=== PATIENT | male | born 1995 | race Caucasian/White ===

== ENCOUNTER 2018-06-21 16:53 | Emergency (ER) | payer OTHER, SELFPAY ==
[2018-06-21 17:19] VITALS: BP 117/72; PULSE 103; RESP 22; TEMP 36.9; O2SAT 99; BMI 32.7
--- NOTE | 2018-06-21 17:20 | DI.RAD.S_ITS ---
PROCEDURE: XR CHEST 2V INDICATIONS: cough x3 weeks TECHNIQUE: 2 views of the chest were acquired. COMPARISON: None. FINDINGS: Surgical changes and devices: None. Lungs and pleura: No pleural effusions or pneumothorax. Lungs are clear. Mediastinum: Left hilar prominence. Bones and chest wall: No suspicious bony abnormalities. Soft tissues appear unremarkable. IMPRESSION: Left hilar prominence is most consistent with overlap of normal vascular structures. If patient's symptoms persist consider a chest CT with contrast to exclude a mass. Dictated by: Russell Awan M.D. on 06/21/2018 at 18:35 Approved by: Russell Awan M.D. on 06/21/2018 at 18:36
[2018-06-21 17:36] VITALS: BP 119/67; PULSE 101; RESP 18; O2SAT 97
--- NOTE | 2018-06-21 17:55 | PC.NURSE ---
Pt speaks ASL. 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 Pt using phone to text type to communicate with staff. Reports he has been coughing for some time now and having an increasingly hard time breathing for the last 3 days. Pt does heavy manual labor for work and has a histoy of asthma and uses inhaler. Lungs has a mild wheeze in the URL otherwise clear with 96-99% sat. Pt wearing mask in department. Has been taking OTC cold and flu medication.
--- NOTE | 2018-06-21 17:57 | ED_ITS ---
HPI - URI/Sore Throat <POLA Pineda - Last Filed: 06/21/18 22:14> General Chief Complaint: Upper Respiratory Symptoms Stated Complaint: CHRONIC COUGH X3 WKS Time Seen by Provider: 06/21/18 17:56 Source: patient Mode of arrival: ambulatory Limitations: language barrier and physical limitation History of Present Illness HPI Narrative: 22-year-old male with no known medical problems here for complaint of having cough over the past 3 weeks. He reports cough was worse over the last 3 days. Patient also states that he has had fever on and off over the last few days. Difficulty with obtaining history this patient is deaf and speaks sign language with no [employer] worker available. Patient was able to type into his phone for me to read when he was trying to tell me. He denies any past history of asthma. 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 Complaint: cough Related Data Previous Rx's Medication Instructions Recorded doxycycline hyclate 100 mg PO BID #13 cap 06/21/18 Allergies Allergy/AdvReac Type Severity Reaction Status Date / Time No Known Drug Allergies Allergy Verified 06/21/18 17:22 Review of Systems <POLA Pineda - Last Filed: 06/21/18 22:14> Constitutional Denies chills, Denies fever(s), Denies lethargy and Denies weakness Eyes Denies change in vision, Denies eye discharge, Denies irritation and Denies loss of vision ENT Ears, Nose, Mouth, and Throat: Denies change in voice, Denies neck pain, Denies sore throat and Denies throat swelling Cardiovascular Denies chest pain, Denies irregular heart rhythm, Denies lightheadedness, Denies palpitations and Denies orthopnea Respiratory Reports cough and Denies wheezing Gastrointestinal Gastrointestinal: Denies abdominal pain, Denies change in bowel habits, Denies diarrhea, Denies nausea and Denies vomiting Genitourinary Denies hematuria, Denies flank pain, Denies urinary incontinence and Denies urinary urgency Musculoskeletal Denies neck pain Integumentary/Breasts Denies pruritus, Denies erythema, Denies rash and Denies wounds Neurologic Denies confusion, Denies loss of vision and Denies weakness Psychiatric Denies anxiety, Denies confusion, Denies depression, Denies homicidal ideation and Denies suicidal ideation Endocrine Denies palpitations Hematologic/Lymphatic Denies easy bruising Allergic/Immunologic Denies urticaria, Denies throat swelling and Denies wheezing Exam <POLA Pineda - Last Filed: 06/21/18 22:14> Initial Vital Signs Initial Vital Signs: Vital Signs Temperature 98.4 F 06/21/18 17:19 Pulse Rate 103 H 06/21/18 17:19 Respiratory Rate 22 06/21/18 17:19 Blood Pressure 117/72 06/21/18 17:19 Pulse Oximetry 99 06/21/18 17:19 Const General: cooperative and well developed Nutritional Appearance: well nourished Orientation: alert, awake, oriented x3 and not confused [facility] Mouth: oral mucosae normal, oropharynx normal and moist mucous membranes Eyes Conjunctivae: conjunctivae normal Sclera: sclerae normal Pupils: PERRL EOM: EOM intact bilaterally Resp Effort & Inspection: normal respiratory effort, able to speak in complete sentences, no respiratory distress and no use of accessory muscles Auscultation: no rales, no rhonchi and wheezes lower bilaterally Cardio Rate: regular rate Rhythm: regular rhythm Heart Sounds: no click, no gallops, no murmurs and no rubs Skin General: no rashes or lesions noted, No jaundice and No petechiae Neuro General: alert, oriented x3, gait normal and no focal motor deficits <Spring Ascencio DO - Last Filed: 06/22/18 05:38> Initial Vital Signs Initial Vital Signs: Vital Signs Temperature 98.4 F 06/21/18 17:19 Pulse Rate 103 H 06/21/18 17:19 Respiratory Rate 22 06/21/18 17:19 Blood Pressure 117/72 06/21/18 17:19 Pulse Oximetry 99 06/21/18 17:19 Course <POLA Pineda - Last Filed: 06/21/18 22:14> Orders Ordered: Discontinued Medications Albuterol (Ventolin Hfa Prepack) 1 box MISC SEEINSTR ONE Stop: 06/21/18 21:35 Last Admin: 06/21/18 21:40 Dose: 1 box Albuterol/Ipratropium (Duoneb) 3 ml INH NOW ONE Stop: 06/21/18 18:50 Last Admin: 06/21/18 21:33 Dose: Not Given Doxycycline Hyclate (Vibramycin) 100 mg PO NOW ONE Stop: 06/21/18 21:35 Last Admin: 06/21/18 22:07 Dose: 100 mg Sodium Chloride (Normal Saline 0.9%) 1,000 mls @ 1,000 mls/hr IV BOLUS ONE Stop: 06/21/18 21:04 Last Infusion: 06/21/18 22:25 Dose: 0 mls/hr Admin: 06/21/18 20:22 Dose: 1,000 mls/hr Vital Signs - 8 hr 06/21/18 22:21 Temperature 97 F L Pulse Rate 78 Respiratory Rate 17 Blood Pressure 116/69 Pulse Oximetry 99 <Spring Ascencio DO - Last Filed: 06/22/18 05:38> Orders Ordered: Discontinued Medications Albuterol (Ventolin Hfa Prepack) 1 box MISC SEEINSTR ONE Stop: 06/21/18 21:35 Last Admin: 06/21/18 21:40 Dose: 1 box Albuterol/Ipratropium (Duoneb) 3 ml INH NOW ONE Stop: 06/21/18 18:50 Last Admin: 06/21/18 21:33 Dose: Not Given Doxycycline Hyclate (Vibramycin) 100 mg PO NOW ONE Stop: 06/21/18 21:35 Last Admin: 06/21/18 22:07 Dose: 100 mg Sodium Chloride (Normal Saline 0.9%) 1,000 mls @ 1,000 mls/hr IV BOLUS ONE Stop: 06/21/18 21:04 Last Infusion: 06/21/18 22:25 Dose: 0 mls/hr Admin: 06/21/18 20:22 Dose: 1,000 mls/hr Vital Signs - 8 hr 06/21/18 22:21 Temperature 97 F L Pulse Rate 78 Respiratory Rate 17 Blood Pressure 116/69 Pulse Oximetry 99 MDM - URI/Sore Throat <POLA Pineda - Last Filed: 06/21/18 22:14> Lab Data Result diagrams: 06/21/18 20:05 06/21/18 20:05 Lab Results 06/21/18 06/21/18 Range/Units 20:05 20:05 WBC 13.0 H (4.5-11.0) X10^3/uL RBC 4.75 (4.5-5.9) X10^6/uL Hgb 14.0 (13.5-17.5) g/dL Hct 41.0 (41-53) % MCV 86.3 (80-100) fL MCH 29.4 (26-34) PG MCHC 34.0 (30-36) % RDW 13.9 (11.6-14.8) % Plt Count 270 (150-400) X10^3/uL Neut % (Auto) 66.5 (50-75) % Lymph % (Auto) 20.1 L (25-40) % Scurry % (Auto) 8.3 (3-14) % Eos % (Auto) 4.0 (2-4) % Baso % (Auto) 1.1 (0-2) % Neut # (Auto) 8700 H (8964-1610) /uL Sodium 138 (137-145) mmol/L Potassium 4.7 (3.4-5.1) mmol/L Chloride 100 (98-107) mmol/L Carbon Dioxide 29 (22-32) mmol/L BUN 12 (9-20) mg/dL Creatinine 0.70 (0.66-1.25) mg/dL Estimated GFR > 60.0 (>60) mL/min BUN/Creatinine Ratio 17.1 (6-22) Glucose 89 (70-100) mg/dL Calcium 9.4 (8.4-10.2) mg/dL Total Bilirubin 1.4 H (0.2-1.3) mg/dL AST 30 (17-59) IU/L ALT 48 (21-72) IU/L Alkaline Phosphatase 104 (38-126) U/L Total Protein 7.2 (6.3-8.2) g/dL Albumin 4.3 (3.5-5.0) g/dL Globulin 2.9 (1.7-4.1) g/dL Albumin/Globulin Ratio 1.5 (1.0-2.8) Imaging Data Chest x-ray: Radiologist's impression: PROCEDURE: XR CHEST 2V INDICATIONS: cough x3 weeks TECHNIQUE: 2 views of the chest were acquired. COMPARISON: None. FINDINGS: Surgical changes and devices: None. Lungs and pleura: No pleural effusions or pneumothorax. Lungs are clear. Mediastinum: Left hilar prominence. Bones and chest wall: No suspicious bony abnormalities. Soft tissues appear unremarkable. IMPRESSION: Left hilar prominence is most consistent with overlap of normal vascular structures. If patient's symptoms persist consider a chest CT with contrast to exclude a mass. Dictated by: Russell Awan M.D. on 06/21/2018 at 18:35 Approved by: Russell Awan M.D. on 06/21/2018 at 18:36 CT scan - chest: Radiologist's impression: PROCEDURE: CT CHEST W CON INDICATIONS: Possible mass seen on chest x-ray TECHNIQUE: After the administration of intravenous contrast, 5 mm thick sections acquired from the pulmonary apices to the posterior costophrenic angles. 7 mm thick coronal and sagittal MIP reformats were acquired. For radiation dose reduction, the following was used: automated exposure control, adjustment of mA and/or kV according to patient size. COMPARISON: None. FINDINGS: Image quality: Excellent. Lungs and pleura: No acute air space opacities. No pleural effusions or pneumothorax. Central and peripheral airways are patent and normal in caliber. Mediastinum: Heart size is normal. No pericardial effusion. No mediastinal or hilar adenopathy by size criteria. Thoracic aorta and central pulmonary arteries are normal in size. Esophagus is normal in caliber. No hiatal hernia. Bones and chest wall: Marked T12-L1 degenerative change. No vertebral body compression fractures. No axillary or supraclavicular adenopathy by size criteria. Thyroid gland is normal worsening. Abdomen: Visualized upper abdominal solid organs appear normal. Upper abdominal bowel loops are normal in caliber. IMPRESSION: Questioned left hilar prominence represents overlap of vascular structures. Marked degenerative change at T12-L1 consistent with sequelae of previous trauma or infection. Dictated by: Russell Awan M.D. on 06/21/2018 at 19:57 Approved by: Russell Awan M.D. on 06/21/2018 at 20:01 [facility] Narrative Medical decision making narrative: CBC shows slightly elevated white count at 13 K. Chest x-ray was obtained and shows possible mass to the left hilar area so CT of the chest was obtained and was negative for any acute findings. Possible mass was ruled out as vascular overlap. Due to symptoms lasting 3 weeks and patient not having a follow-up on medical care will empirically treat for atypical pneumonia with doxycycline. He is also prescribed an albuterol here to help with wheezing. He is instructed to drink plenty of fluids and rest over the next couple of days. Follow up with primary care when able. Return emergency room for any worsening symptoms. <Spring Ascencio DO - Last Filed: 06/22/18 05:38> Lab Data Lab Results 06/21/18 06/21/18 Range/Units 20:05 20:05 WBC 13.0 H (4.5-11.0) X10^3/uL RBC 4.75 (4.5-5.9) X10^6/uL Hgb 14.0 (13.5-17.5) g/dL Hct 41.0 (41-53) % MCV 86.3 (80-100) fL MCH 29.4 (26-34) PG MCHC 34.0 (30-36) % RDW 13.9 (11.6-14.8) % Plt Count 270 (150-400) X10^3/uL Neut % (Auto) 66.5 (50-75) % Lymph % (Auto) 20.1 L (25-40) % Scurry % (Auto) 8.3 (3-14) % Eos % (Auto) 4.0 (2-4) % Baso % (Auto) 1.1 (0-2) % Neut # (Auto) 8700 H (0514-8121) /uL Sodium 138 (137-145) mmol/L Potassium 4.7 (3.4-5.1) mmol/L Chloride 100 (98-107) mmol/L Carbon Dioxide 29 (22-32) mmol/L BUN 12 (9-20) mg/dL Creatinine 0.70 (0.66-1.25) mg/dL Estimated GFR > 60.0 (>60) mL/min BUN/Creatinine Ratio 17.1 (6-22) Glucose 89 (70-100) mg/dL Calcium 9.4 (8.4-10.2) mg/dL Total Bilirubin 1.4 H (0.2-1.3) mg/dL AST 30 (17-59) IU/L ALT 48 (21-72) IU/L Alkaline Phosphatase 104 (38-126) U/L Total Protein 7.2 (6.3-8.2) g/dL Albumin 4.3 (3.5-5.0) g/dL Globulin 2.9 (1.7-4.1) g/dL Albumin/Globulin Ratio 1.5 (1.0-2.8) Discharge Plan Departure Patient Disposition: Home, Self-Care Clinical Impression: Cough Discharge Date/Time: 06/21/18 22:05 Interventions: ED Discharge Assessment Last Done: 06/21/18 22:21 Instructions: DI for Atypical Chest Pain Activity Restrictions/Additional Instructions: Laboratory results today shows slightly elevated white count however was otherwise were unremarkable. Chest x-ray and chest CT were obtained and were negative for any acute findings. Due to length of symptoms will empirically treat for atypical pneumonia with antibiotics use as directed. Plenty of fluids and rest over the next few days. Follow up with primary care provider when able. For any worsening symptoms return to the emergency room. Use provided albuterol inhaler as prescribed Prescriptions: New doxycycline hyclate 100 mg capsule 100 mg PO BID Qty: 13 RF: 0 Stand Alone Forms: Work/School Restrictions <Spring Ascencio DO - Last Filed: 06/22/18 05:38> Cosign ED Attending Coscarmenzaature Attestation: I was immediately available in the department for consultation. Documentation has been reviewed. I agree with assessment and plan.
--- NOTE | 2018-06-21 18:50 | DI.CT.S_ITS ---
PROCEDURE: CT CHEST W CON INDICATIONS: Possible mass seen on chest x-ray TECHNIQUE: After the administration of intravenous contrast, 5 mm thick sections acquired from the pulmonary apices to the posterior costophrenic angles. 7 mm thick coronal and sagittal MIP reformats were acquired. For radiation dose reduction, the following was used: automated exposure control, adjustment of mA and/or kV according to patient size. COMPARISON: None. FINDINGS: Image quality: Excellent. Lungs and pleura: No acute air space opacities. No pleural effusions or pneumothorax. Central and peripheral airways are patent and normal in caliber. Mediastinum: Heart size is normal. No pericardial effusion. No mediastinal or hilar adenopathy by size criteria. Thoracic aorta and central pulmonary arteries are normal in size. Esophagus is normal in caliber. No hiatal hernia. Bones and chest wall: Marked T12-L1 degenerative change. No vertebral body compression fractures. No axillary or supraclavicular adenopathy by size criteria. Thyroid gland is normal worsening. Abdomen: Visualized upper abdominal solid organs appear normal. Upper abdominal bowel loops are normal in caliber. IMPRESSION: Questioned left hilar prominence represents overlap of vascular structures. Marked degenerative change at T12-L1 consistent with sequelae of previous trauma or infection. Dictated by: Russell Awan M.D. on 06/21/2018 at 19:57 Approved by: Russell Awan M.D. on 06/21/2018 at 20:01
--- NOTE | 2018-06-21 19:39 | PC.NURSE ---
1924 report form Jailyn Montano RN, Pt. being wheeled to CT during shift report. remains there at present.
--- NOTE | 2018-06-21 20:04 | PC.NURSE ---
Lab at BS to complete lab orders
[2018-06-21 20:20] LABS: Add Manual Diff / Slide Review NO; Basophils Percent Auto 1.1 % (0-2); Lymphocytes Percent Auto 20.1 % (25-40); Mean Corpuscular Hemoglobin 29.4 PG (26-34); Mean Corpuscular Volume 86.3 fL (80-100); Monocytes Percent Auto 8.3 % (3-14); Neutrophils Absolute Auto 8700 /uL (3000-5900); Neutrophils Percent Auto 66.5 % (50-75); Platelet Count 270 X10^3/uL (150-400); Red Blood Cell Count 4.75 X10^6/uL (4.5-5.9); Red Cell Distribution Width 13.9 % (11.6-14.8)
[2018-06-21] MEDS: SODIUM CHLORIDE 0.9% 1,000 ML 1000 ML IV (20:22)
[2018-06-21 20:26] LABS: Alanine Aminotransferase 48 IU/L (21-72); Albumin 4.3 g/dL (3.5-5.0); Albumin Globulin Ratio 1.5 (1.0-2.8); Alkaline Phosphatase 104 U/L (38-126); Aspartate Aminotransferase 30 IU/L (17-59); BUN Creatinine Ratio 17.1 (6-22); Bilirubin Total 1.4 mg/dL (0.2-1.3); Blood Urea Nitrogen 12 mg/dL (9-20); Calcium 9.4 mg/dL (8.4-10.2); Carbon Dioxide 29 mmol/L (22-32); Chloride 100 mmol/L (98-107); Estimated Glomerular Filt Rate > 60.0 mL/min (>60); Globulin 2.9 g/dL (1.7-4.1); Glucose 89 mg/dL (70-100); HEMOLYSIS < 15 (0-50); Potassium 4.7 mmol/L (3.4-5.1); Sodium 138 mmol/L (137-145); Total Protein 7.2 g/dL (6.3-8.2)
[2018-06-21 20:30] VITALS: BP 119/68; PULSE 87; RESP 14; O2SAT 95
[2018-06-21 21:30] VITALS: BP 116/69; PULSE 91; RESP 15; O2SAT 96
[2018-06-21] MEDS: ALBUTEROL HFA PREPACK 1 BOX MISC (21:40)
[2018-06-21] MEDS: DOXYCYCLINE HYCLATE 100 MG TABLET PO (22:07)
[2018-06-21 22:21] VITALS: BP 116/69; PULSE 78; RESP 17; TEMP 36.1; O2SAT 99
== END 2018-06-21 22:05 | disposition home or self-care (01) ==
PROVIDERS: Emergency Provider Nurse Practitioner Family
DX: R05 Cough (principal)
CPT/HCPCS: 36415; 71046; 71260; 80053; 85025; 93005; 96360; 96361; 99283; 99285; Q9967